=== PATIENT | female | born 1995 | race African-American/Black ===

== ENCOUNTER 2022-01-01 23:09 | Emergency (ER) | payer SELFPAY ==
[2022-01-02] MEDS ORDERED: Ondansetron ODT 4 MG TAB ONE ×2 (01:12→01:14)
[2022-01-02] MEDS ORDERED: diphenhydrAMINE 50 MG/ML VIAL ONE (01:25)
[2022-01-02] MEDS ORDERED: diphenhydrAMINE 25 MG CAP ONE (01:26)
[2022-01-02] MEDS ORDERED: Dexamethasone 20 MG/5 ML VIAL ONE (01:27)
== END 2022-01-02 03:16 | disposition home or self-care (01) ==
LOC: CSHERS 23:09
DX: J02.9 Acute pharyngitis, unspecified (principal); I10 Essential (primary) hypertension
CPT/HCPCS: 87081; 87430; 87804; 99283; J1100; J1200; Q0162

== ENCOUNTER 2022-01-19 08:10 | Emergency (ER) | payer SELFPAY ==
[2022-01-19 08:39] LABS: #Eosinphils 0.1 10x3/uL (0.0-0.5); #Monocytes 0.3 10x3/uL (0.0-1.1); #Neutrophils 1.4 10x3/uL (1.5-8.4); %Basophils 1.2 % (0.0-2.0); %Lymphocytes 45.9 % (18.0-47.0); %Monocytes 7.7 % (0.0-10.0); %Neutrophils 42.2 % (40.0-75.0); Hemoglobin 13.5 g/dL (12.0-15.5); Mean Corpuscular HGB CONC 32.2 g/dL (32.0-36.0); Mean Corpuscular Hemoglobin 26.7 pg (27.0-33.0); Mean Corpuscular Volume 82.8 fl (81.6-98.3); Mean Platelet Volume 9.4 fl (7.4-10.4); Platelet Count 372 10x3/uL (150-450); RBC Distribution Width 13.3 % (11.5-14.5); Red Blood Cell (RBC) Count 5.06 10x6/uL (3.90-5.03); White Blood Cell (WBC) Count 3.4 10x3/uL (3.5-10.5)
[2022-01-19 08:55] LABS: ALT (SGPT) 15 U/L (8-55); AST (SGOT) 18 U/L (5-34); Albumin 4.4 g/dL (3.5-5.0); Alkaline Phosphatase 56 U/L (40-110); Anion Gap 14 mmol/L (10-20); BUN (Urea Nitrogen) 15 mg/dL (7.0-18.7); Bilirubin, Total 0.3 mg/dL (0.2-1.2); Calc. Creatinine Clearance 0 mL/min (70-130); Calcium 9.5 mg/dL (7.8-10.44); Carbon Dioxide 23 mmol/L (22-29); Chloride 108 mmol/L (98-107); Estimated GFR 101; Globulin 3.4 g/dL (2.4-3.5); Glucose 97 mg/dL (70-105); Potassium 4.3 mmol/L (3.5-5.1); Protein, Total 7.8 g/dL (6.0-8.3); Sodium 141 mmol/L (136-145)
[2022-01-19] MEDS ORDERED: Metoclopramide HCl 10 MG/2 ML VIAL ONE (10:29)
[2022-01-19] MEDS ORDERED: diphenhydrAMINE 50 MG/ML VIAL ONE (10:29)
== END 2022-01-19 11:52 | disposition home or self-care (01) ==
LOC: CSHERS 08:10
DX: R07.9 Chest pain, unspecified (principal); G43.909 Migraine, unspecified, not intractable, without status migrainosus; I10 Essential (primary) hypertension
CPT/HCPCS: 71045; 80053; 84484; 85025; 93005; 94760; 96374; 96375; J1200; J2765

== ENCOUNTER 2022-10-28 16:10 | Emergency (ER) | payer SELFPAY ==
[2022-10-28] MEDS ORDERED: Ketorolac Tromethamine 30 MG/ML VIAL ONE (17:22)
[2022-10-28] MEDS ORDERED: Lidocaine 1% (PF) 30 ML VIAL ONE (17:22)
[2022-10-28] MEDS ORDERED: Lidocaine 1% w/Epinephrine 1:200K 30 ML VIAL ONE (17:54)
== END 2022-10-28 19:32 | disposition home or self-care (01) ==
LOC: CSHERS 16:10
DX: N75.1 Abscess of Bartholin's gland (principal); I10 Essential (primary) hypertension
CPT/HCPCS: 56420; 96372; J1885; J2001

== ENCOUNTER 2022-10-28 20:55 | Emergency (ER) | payer SELFPAY | END 2022-10-28 23:10 | disposition home or self-care (01) | LOC: CSHERS 20:55 | DX: N75.0 Cyst of Bartholin's gland (principal); I10 Essential (primary) hypertension | CPT/HCPCS: 56420 ==

== ENCOUNTER 2022-10-30 17:12 | Emergency (ER) | payer SELFPAY ==
[~2022-10-30 17:12] MED LIST: Iopamidol 300 61% 100 ML VIAL FS ONE
[2022-10-30 19:05] LABS: Bilirubin Neg (Negative); Blood, Urine Negative (Negative); Clarity Cloudy (Clear); Glucose, Urine (Dipstick) Normal (Negative); Ketone, Urine 5 mg/dL (Negative); Leukocyte 100 (Negative); Nitrite Negative (Negative); Protein, Urine (Dipstick) 15 mg/dl (Neg-Trace); Specific Gravity, Urine 1.015 (1.005-1.030)
[2022-10-30 19:13] LABS: #Eosinphils 0.1 10x3/uL (0.0-0.5); #Monocytes 0.4 10x3/uL (0.0-1.1); #Neutrophils 3.6 10x3/uL (1.5-8.4); %Basophils 0.5 % (0.0-2.0); %Lymphocytes 29.9 % (18.0-47.0); %Monocytes 7.3 % (0.0-10.0); %Neutrophils 61.1 % (40.0-75.0); Mean Corpuscular HGB CONC 31.5 g/dL (32.0-36.0); Mean Corpuscular Hemoglobin 25.6 pg (27.0-33.0); Mean Corpuscular Volume 81.4 fl (81.6-98.3); Mean Platelet Volume 9.6 fl (7.4-10.4); Platelet Count 289 10x3/uL (150-450); RBC Distribution Width 14.4 % (11.5-14.5); Red Blood Cell (RBC) Count 4.29 10x6/uL (3.90-5.03); White Blood Cell (WBC) Count 5.9 10x3/uL (3.5-10.5)
[2022-10-30 19:24] LABS: Bacteria/HPF 1+ HPF (None Seen); CAUTI Indications for Culture Dysuria,urgency,freq; Squamous Epithelial 21-50 HPF (0-3)
[2022-10-30 19:26] LABS: Urine Culture Reflex Yes Yes
[2022-10-31 15:07] LABS: Chlam.trachomatis by PCR,Urine Not Detected (NotDetected); GC N.gonorrhoeae PCR,UrineVOID Not Detected (NotDetected)
== END 2022-10-30 21:19 | disposition home or self-care (01) ==
LOC: CSHERS 17:12
DX: N39.0 Urinary tract infection, site not specified (principal); N90.7 Vulvar cyst; I10 Essential (primary) hypertension
CPT/HCPCS: 36415; 72193; 81001; 85025; 87086; 87480; 87491; 87510; 87591; 87660; Q9967

== ENCOUNTER 2023-01-12 12:05 | Emergency (ER) | payer BC ==
[2023-01-12] MEDS ORDERED: predniSONE 20 MG TAB ONE (13:13)
== END 2023-01-12 13:22 | disposition home or self-care (01) ==
LOC: CSHERS 12:05
DX: R21 Rash and other nonspecific skin eruption (principal); I10 Essential (primary) hypertension
CPT/HCPCS: 99282; J7512

== ENCOUNTER 2023-08-28 22:47 | Emergency (ER) | payer BC, SELFPAY | END 2023-08-29 00:19 | disposition home or self-care (01) | LOC: CSHERS 22:47 | DX: K08.89 Other specified disorders of teeth and supporting structures (principal); I10 Essential (primary) hypertension | CPT/HCPCS: 99282 ==

== ENCOUNTER 2024-03-02 12:26 | Emergency (ER) | payer SELFPAY ==
[2024-03-02] MEDS ORDERED: Ketorolac Tromethamine 30 MG (1 mL) VIAL ONE (13:35)
[2024-03-02] MEDS ORDERED: Acetaminophen 500 MG TAB ONE (13:36)
[2024-03-02] MEDS ORDERED: Ondansetron ODT 4 MG TAB ONE (13:36)
[2024-03-02 14:12] LABS: Bilirubin Neg (Negative); Blood, Urine 25 (Negative); Clarity Clear (Clear); Glucose, Urine (Dipstick) Normal (Negative); Ketone, Urine Negative (Negative); Leukocyte Negative (Negative); Nitrite Negative (Negative); Protein, Urine (Dipstick) Negative (Neg-Trace); Urobilinogen Normal mg/dL (Less than 2)
[2024-03-02 14:22] LABS: Pregnancy Test - Urine (BHCG) Negative (Negative); Pregu Control Background? CLEAR/WHITE (CLR/WHITE); Pregu Control Bar Appear? YES (CONTROL BAR)
[2024-03-02 14:25] LABS: Bacteria/HPF Rare-Few HPF (None Seen); CAUTI Indications for Culture Dysuria,urgency,freq; RBC/HPF 0-3 HPF (0-3); Squamous Epithelial 21-50 HPF (0-3); Urine Culture Reflex No No
== END 2024-03-02 15:40 | disposition home or self-care (01) ==
LOC: CSHERS 12:26
DX: M54.50 Low back pain, unspecified (principal); R10.9 Unspecified abdominal pain; R11.2 Nausea with vomiting, unspecified; I10 Essential (primary) hypertension
CPT/HCPCS: 81001; 81025; 96372; 99283; J1885; Q0162

== ENCOUNTER 2025-03-12 11:06 | Outpatient (CLI) | payer OTHER ==
[2025-03-12 12:00] LABS: Hematocrit 39.8 % (34.9-44.5)
== END 2025-03-12 11:07 | disposition home or self-care (01) ==
LOC: CSHLAB 11:06
PROVIDERS: ATTEND Specialist
DX: Z01.818 Encounter for other preprocedural examination (principal); J35.3 Hypertrophy of tonsils with hypertrophy of adenoids; J34.2 Deviated nasal septum; J34.3 Hypertrophy of nasal turbinates
CPT/HCPCS: 85014; 93005; 93010

== ENCOUNTER 2025-03-13 09:47 | Day surgery (SDC) | payer OTHER ==
[2025-03-12 11:50] VITALS: BMI 40.7
[2025-03-13] MEDS ORDERED: AFRIN NASAL MIST 15 ML BOT ONE ×2 (10:59→11:52)
[2025-03-13] MEDS ORDERED: PROPOFOL 20 ML ONE (11:42)
[2025-03-13] MEDS ORDERED: Bacitracin 1 PK ONE (11:52)
[2025-03-13] MEDS ORDERED: Lidocaine 1% w/Epinephrine 1:200K 30 ML VIAL ONE (11:52)
[2025-03-13] MEDS ORDERED: Ferric Subsulfate 8 ML TOPICAL SOLN ONE (11:52)
[2025-03-13] MEDS ORDERED: SUGAMMADEX SODIUM 200 MG/2 ML VIAL ONE (13:00)
[2025-03-13] MEDS ORDERED: Oxymetazoline HCl 0.05% (15 ML) ONE (13:00)
[2025-03-13] MEDS ORDERED: HYDROmorphone 0.5 MG/0.5 ML SYRINGE ONE (14:17)
[2025-03-13] MEDS ORDERED: HYDROcodone/Acetaminophen 5/325 mg Tablet ONE (15:21)
[2025-03-13] MEDS ORDERED: Hydrocodone-Acetamin 15 ML UDCUP ONE (16:03)
== END 2025-03-13 17:15 | disposition home or self-care (01) ==
LOC: CSHSDC 09:47
PROVIDERS: ATTEND Specialist
DX: J35.01 Chronic tonsillitis (principal); J35.3 Hypertrophy of tonsils with hypertrophy of adenoids; J34.2 Deviated nasal septum; J34.3 Hypertrophy of nasal turbinates; G47.33 Obstructive sleep apnea (adult) (pediatric); K13.79 Other lesions of oral mucosa; I10 Essential (primary) hypertension
CPT/HCPCS: 88304; J1100; J1171; J2704

== ENCOUNTER 2025-03-14 11:30 | Emergency (ER) | payer OTHER ==
[2025-03-14] MEDS ORDERED: Dexamethasone 10 MG/ML VIAL ONE (11:53)
[2025-03-14 12:14] LABS: #Basophils Less than 0.03 10x3/uL (0.0-0.2); #Eosinophils Less than 0.03 10x3/uL (0.0-0.5); #Monocytes 1.03 10x3/uL (0.0-1.1); #Neutrophils 8.04 10x3/uL (1.5-8.4); %Basophils 0.2 % (0.0-2.0); %Eosinophils 0.0 % (0.0-6.0); %Lymphocytes 13.0 % (18.0-47.0); %Monocytes 9.8 % (0.0-10.0); %Neutrophils 76.6 % (40.0-75.0); Hematocrit 39.9 % (34.9-44.5); Hemoglobin 13.1 g/dL (12.0-15.5); Mean Corpuscular Hemoglobin 26.3 pg (27.0-33.0); Mean Corpuscular Volume 80.0 fL (81.6-98.3); Platelet Count 363 10x3/uL (150-450); Red Blood Cell (RBC) Count 4.99 10x6/uL (3.90-5.03); White Blood Cell (WBC) Count 10.50 10x3/uL (3.5-10.5)
[2025-03-14 12:20] LABS: ALT (SGPT) 15 U/L (Less than 34); AST (SGOT) 20 U/L (11-34); Albumin 4.0 g/dL (3.1-4.5); Alkaline Phosphatase 53 U/L (40-110); Anion Gap 12 mmol/L (10-20); BUN (Urea Nitrogen) 10 mg/dL (7.0-18.7); Bilirubin, Total 0.3 mg/dL (0.3-1.2); Calc. Creatinine Clearance 0 mL/min (70-130); Calcium 9.3 mg/dL (7.8-10.44); Carbon Dioxide 22 mmol/L (22-29); Chloride 109 mmol/L (98-107); Globulin 3.7 g/dL (2.4-3.5); Glucose 105 mg/dL (70-105); Potassium 3.9 mmol/L (3.5-5.1); Sodium 139 mmol/L (136-145)
[2025-03-14 12:22] LABS: Troponin I Less than 0.010 ng/mL (< 0.028)
== END 2025-03-14 12:49 | disposition home or self-care (01) ==
LOC: CSHERS 11:30
DX: R07.89 Other chest pain (principal); I10 Essential (primary) hypertension; Z90.89 Acquired absence of other organs
CPT/HCPCS: 71045; 80053; 84484; 85025; 93005; 96374; 96375; J1100; J3010